=== PATIENT | female | born 1990 | race American Indian/Alaskan Native ===

== ENCOUNTER 2016-08-24 01:25 | Emergency (ER) | payer MEDICAID ==
--- NOTE | 2016-08-24 01:49 | Emergency Department Report ---
ED Abdominal Pain HPI - General Stated Complaint: ABDOMINAL PAIN Time Seen by Provider: 08/24/16 01:41 - History of Present Illness Initial Comments: This is a 26-year-old female with prior history of as abdominal surgeries. She complains of 4 hour history of right lower quadrant abdominal pain. States the pain is worse with movement. She is somewhat nauseated with this. She has had emesis 2. She denies any diarrhea she denies any trauma. She denies any recent travel. She denies dysuria. MD Complaint: abdominal pain Onset/Timin -: hour(s) Location: RLQ Radiation: none Migration to: no migration Severity scale (0 -10): 10 Quality: sharp Consistency: constant Improves With: nothing Worsens With: movement Associated Symptoms: denies other symptoms - Related Data Previous Rx's Medication Instructions Recorded Last Taken Type Ibuprofen [Motrin 800 MG tab] 800 mg PO Q8HR PRN #20 tablet 08/24/16 Unknown Rx Ondansetron [Zofran TAB] 4 mg PO Q8HR PRN #10 tablet 08/24/16 Unknown Rx oxyCODONE /ACETAMINOPHEN [Percocet 1 tab PO Q4HR PRN #20 tab 08/24/16 Unknown Rx 5/325] Allergies Allergy/AdvReac Type Severity Reaction Status Date / Time No Known Allergies Allergy Verified 08/24/16 01:51 ED Review of Systems ROS: Stated complaint: ABDOMINAL PAIN Other details as noted in HPI Comment: All other systems reviewed and negative Constitutional: denies: chills, fever Eyes: denies: eye pain, eye discharge, vision change ENT: denies: ear pain, throat pain Respiratory: denies: cough, shortness of breath, wheezing Cardiovascular: denies: chest pain, palpitations Endocrine: no symptoms reported Gastrointestinal: abdominal pain, nausea, vomiting. denies: diarrhea Genitourinary: denies: urgency, dysuria, discharge Musculoskeletal: denies: back pain, joint swelling, arthralgia Skin: denies: rash, lesions Neurological: denies: headache, weakness, paresthesias Psychiatric: denies: anxiety, depression Hematological/Lymphatic: denies: easy bleeding, easy bruising ED Past Medical Hx - Past Medical History Previous Medical History?: No - Medications Home Medications: Home Medications Medication Instructions Recorded Confirmed Last Taken Type Ibuprofen [Motrin 800 MG tab] 800 mg PO Q8HR PRN #20 tablet 08/24/16 Unknown Rx Ondansetron [Zofran TAB] 4 mg PO Q8HR PRN #10 tablet 08/24/16 Unknown Rx oxyCODONE /ACETAMINOPHEN [Percocet 1 tab PO Q4HR PRN #20 tab 08/24/16 Unknown Rx 5/325] ED Physical Exam - General General appearance: alert, in distress (moderate), obese - Head Head exam: Present: atraumatic, normocephalic - Eye Eye exam: Present: normal appearance - ENT ENT exam: Present: mucous membranes moist - Neck Neck exam: Present: normal inspection - Respiratory Respiratory exam: Present: normal lung sounds bilaterally. Absent: respiratory distress - Cardiovascular Cardiovascular Exam: Present: regular rate, normal rhythm. Absent: systolic murmur, diastolic murmur, rubs, gallop - GI/Abdominal GI/Abdominal exam: Present: soft, tenderness (moderate right lower quadrant. No guarding no rebound.), normal bowel sounds. Absent: guarding, rebound, organomegaly - Extremities Exam Extremities exam: Present: normal inspection - Back Exam Back exam: Present: normal inspection. Absent: CVA tenderness (R), CVA tenderness (L) - Neurological Exam Neurological exam: Present: alert, oriented X3 - Psychiatric Psychiatric exam: Present: normal affect, normal mood - Skin Skin exam: Present: warm, dry, intact, normal color. Absent: rash ED Course Vital Signs 08/24/16 08/24/16 08/24/16 01:47 01:48 02:00 Temperature 98.5 F 98.5 F Pulse Rate 111 H 111 H Respiratory 20 20 20 Rate Blood Pressure 131/73 Blood Pressure 131/73 [Left] O2 Sat by Pulse 100 100 Oximetry 08/24/16 08/24/16 08/24/16 02:08 02:30 04:49 Temperature Pulse Rate Respiratory 20 20 20 Rate Blood Pressure Blood Pressure [Left] O2 Sat by Pulse 100 Oximetry 08/24/16 08/24/16 05:19 05:46 Temperature Pulse Rate Respiratory 20 20 Rate Blood Pressure Blood Pressure [Left] O2 Sat by Pulse Oximetry - Reevaluation(s) Reevaluation #1: 08/24/16 05:52 Patient's initial presentation seemed consistent with possibility of appendicitis. After obtaining test, CT abdomen and pelvis was ordered. Patient was given IV pain medications with fairly good result. Ultimately CT scan did demonstrate kidney stone. Was somewhat surprising to me but is correlated with hematuria which is noted in her sample as well. Rest of her labs are unremarkable. I did have a long conversation with the patient regarding her diagnoses. She is noted to have several intrarenal stones as well and indicated she will likely have other pains like this in the future. In general she is not very good at handling pain and I suspect we will see more of her in the ED. I did give her referral to urology as well. There are no concerning features noted on her examination labs or CT for the hydroureter. I feel She will be successful in passing the stone home on her own. ED Medical Decision Making - Lab Data Result diagrams: 08/24/16 01:58 08/24/16 01:58 - Radiology Data Radiology results: report reviewed, image reviewed 3 mm meter calculus in the right ureter at the level of the UVJ. Moderate hydroureter and hydronephrosis appreciated. Normal appendix. Normal ovaries. Critical care attestation.: If time is entered above; I have spent that time in minutes in the direct care of this critically ill patient, excluding procedure time. ED Disposition Clinical Impression: Kidney stone on right side Disposition: DISCHARGED TO HOME OR SELFCARE Is pt being admited?: No Does the pt Need Aspirin: No Condition: Stable Instructions: Kidney Stones (ED) Additional Instructions: Drink plenty of fluids. Follow up with urology if you continue to have pains for longer than 5 days. Prescriptions: Ibuprofen [Motrin 800 MG tab] 800 mg PO Q8HR PRN #20 tablet PRN Reason: Pain Ondansetron [Zofran TAB] 4 mg PO Q8HR PRN #10 tablet PRN Reason: Nausea oxyCODONE /ACETAMINOPHEN [Percocet 5/325] 1 tab PO Q4HR PRN #20 tab PRN Reason: Pain Referrals: PRIMARY CARE, [Primary Care Provider] - 3-5 Days CHACHO BAUM MD [Staff Physician] - 3-5 Days Time of Disposition: 05:00
[2016-08-24] MEDS: DILAUDID IV ONE ×2 (02:00→04:49)
[2016-08-24] MEDS: NACL 0.9% 1000 ML 1,000 ML IV ONE (02:00)
[2016-08-24] MEDS: ZOFRAN ODT PO/SL ONE (02:00)
[2016-08-24 02:09] LABS: Basophils % (Auto) 0.5 % (0.0-1.8); Eosinophils % (Auto) 0.4 % (0.0-4.3); Hematocrit 39.9 % (30.3-42.9); Hemoglobin 13.2 gm/dl (10.1-14.3); Mean Corpuscular HGB Conc 33 % (30-34); Mean Corpuscular Volume 78 fl (79-97); Platelet Count 271 K/mm3 (140-440); Red Cell Distribution Width 12.5 % (13.2-15.2); White Blood Count 7.7 K/mm3 (4.5-11.0)
[2016-08-24 02:10] LABS: Mean Corpuscular Hemoglobin 26 pg (28-32)
[2016-08-24 02:29] LABS: Alanine Aminotransferase 18 units/L (7-56); Albumin 3.8 g/dL (3.9-5); Albumin/Globulin Ratio 1.2 %; Alkaline Phosphatase 83 units/L (35-129); Anion Gap 16 mmol/L; Bilirubin,Total 0.2 mg/dL (0.1-1.2); Blood Urea Nitrogen 10 mg/dL (7-17); Calcium 9.1 mg/dL (8.4-10.2); Carbon Dioxide 20 mmol/L (22-30); Chloride 101.4 mmol/L (98-107); Glucose 131 mg/dL (65-100); Potassium 3.5 mmol/L (3.6-5.0); Sodium 134 mmol/L (137-145); Total Protein 6.9 g/dL (6.3-8.2)
[2016-08-24 03:47] LABS: Bilirubin,Urine NEG (Negative); Blood,Urine LG (Negative); Ketones,Urine NEG (Negative); Leukocyte Esterase,Urine NEG (Negative); Nitrite,Urine NEG (Negative); Protein,Urine <15 mg/dL mg/dL (Negative); Urobilinogen,Urine < 2.0 mg/dL (<2.0)
[2016-08-24 03:51] LABS: RBC,Urine > 182.0 /HPF (0.0-6.0)
[2016-08-24] MEDS ORDERED: ZOFRAN ONE (04:38)
--- NOTE | 2016-08-24 04:38 | Cat Scan Report ---
FINAL REPORT PROCEDURE: CT ABDOMEN PELVIS W CON TECHNIQUE: Computerized axial tomography of the abdomen and pelvis was performed after the IV injection of iodinated nonionic contrast. HISTORY: RLQ abd pains COMPARISON: No prior studies are available for comparison. FINDINGS: Visualized lower thorax: No significant abnormality. Liver: Normal size and attenuation. Spleen: Normal size and attenuation. Gallbladder and biliary system: Normal. Pancreas: Normal. Adrenals: Normal. Kidneys: Both kidneys have a normal size. Moderate right hydronephrosis and hydroureter down to a 3 millimeter stone at the right ureteral vesicle junction. The left collecting system is normal.. GI tract: No obstruction is seen. No ileus or enteritis. The cecum, appendix and colon are normal.. Lymph nodes and mesentery: Normal. Vasculature: Normal. Bladder: Normal. Reproductive organs: The uterus is normal. There is a moderate-sized cyst off of the left ovary, this measures 3 centimeters in diameter. Minimal fluid identified in the lower pelvis.. Peritoneum: Minimal fluid lower pelvis.. Musculoskeletal structures: No significant abnormality. Other: None. IMPRESSION: Moderate right hydronephrosis and hydroureter down to a 3 millimeter stone at the right ureteral vesicle junction. Left ovary cystic region measures 3 centimeters. Minimal fluid is identified in the cul-de-sac. Hemorrhagic cyst is possible.
[2016-08-24] MEDS: ZOFRAN IV ONE (04:49)
[2016-08-24] MEDS: NACL ONE (04:59)
[2016-08-24] MEDS: TORADOL IV ONE (05:46)
[2016-08-24 06:53] VITALS: BP 120/68
== END 2016-08-24 06:54 | disposition home or self-care (01) ==
LOC: ED 01:25
DX: N20.0 Calculus of kidney (principal); R11.2 Nausea with vomiting, unspecified
CPT/HCPCS: 36415; 74177; 80053; 81001; 83690; 84703; 85025; 96361; 96374; 96375; 96376; 99284; J1170; J1885; J2405; J7030; Q9967; Q0162

== ENCOUNTER 2016-09-06 10:28 | Outpatient (CLI) | payer MEDICAID ==
--- NOTE | 2016-09-06 12:18 | Ultrasound Report ---
ULTRASOUND RENAL BILATERAL HISTORY: Hydronephrosis. TECHNIQUE: Transabdominal ultrasound with color Doppler interrogation. FINDINGS: Comparison is made to the CT abdomen and pelvis dated 08/24/16. CT demonstrated mild to moderate right hydronephrosis and a mid to distal right ureteral stone. The right kidney measures 11.1 cm in length and the left kidney measures 11.0 cm in length. Right hydronephrosis has resolved or nearly resolved. The kidneys appear within normal limits. There is normal cortical echotexture. No evidence for cystic disease, mass or perinephric fluid. There is good flow to both kidneys on color Doppler. Images through the bladder are unremarkable. IMPRESSION: Right hydronephrosis has resolved or nearly resolved since the CT abdomen pelvis dated 08/24/16. No acute abnormality is appreciated.
== END 2016-09-06 10:29 | disposition home or self-care (01) ==
LOC: US 10:28
PROVIDERS: ATTEND Pediatrics
DX: N13.2 Hydronephrosis with renal and ureteral calculous obstruction (principal)
CPT/HCPCS: 76770

== ENCOUNTER 2017-01-15 03:56 | Emergency (ER) | payer MEDICAID ==
[2017-01-15 04:30] VITALS: BP 137/89
--- NOTE | 2017-01-15 05:04 | Emergency Department Report ---
HPI - General Chief Complaint: Dental/Oral Time Seen by Provider: 01/15/17 05:03 - HPI HPI: Patient here reports that she had toothache to her right lower back tooth that started at 1 AM. She says she took Excedrin and Motrin and she didn't get any relief. Patient does not have a dentist. Denies any sore throat or swelling of tongue. Denies any drooling. Denies any nasal congestion or coughing. Pain is 10 out of 10 and achy. Denies any fever or chills ED Past Medical Hx - Past Medical History Previous Medical History?: No - Surgical History Past Surgical History?: Yes Additional Surgical History: C-sections X3 - Family History Family history: no significant - Social History Smoking Status: Never Smoker Substance Use Type: None - Medications Home Medications: Home Medications Medication Instructions Recorded Confirmed Last Taken Type Ibuprofen [Motrin 800 MG tab] 800 mg PO Q8HR PRN #20 tablet 08/24/16 Unknown Rx Ondansetron [Zofran TAB] 4 mg PO Q8HR PRN #10 tablet 08/24/16 Unknown Rx oxyCODONE /ACETAMINOPHEN [Percocet 1 tab PO Q4HR PRN #20 tab 08/24/16 Unknown Rx 5/325] Acetaminophen/Codeine [Tylenol 1 tab PO Q6H PRN #12 tab 01/15/17 Unknown Rx /Codeine # 3 tab] Amoxicillin [Amoxicillin TAB] 875 mg PO BID #20 tablet 01/15/17 Unknown Rx Ibuprofen [Motrin] 600 mg PO Q8H PRN #15 tablet 01/15/17 Unknown Rx ED Review of Systems ROS: Stated complaint: TOOTHACHE Other details as noted in HPI Comment: All other systems reviewed and negative Constitutional: denies: chills, fever ENT: dental pain. denies: ear pain, throat pain, congestion Respiratory: no symptoms reported Cardiovascular: denies: chest pain, palpitations, edema, syncope Gastrointestinal: denies: abdominal pain, nausea, vomiting Musculoskeletal: denies: back pain, arthralgia Skin: denies: rash Neurological: denies: headache Physical Exam - Physical Exam Vital Signs: Vital Signs 01/15/17 04:24 Temperature 98.3 F Pulse Rate 72 Respiratory 18 Rate Blood Pressure 137/89 Blood Pressure 137/89 [Left] O2 Sat by Pulse 100 Oximetry General: This is a 26-year-old female well-nourished well-developed in no acute distress. Physical Exam: Head: Normocephalic atraumatic Mouth: Moist, no pharyngeal exudate or erythema. Uvula is midline and oral airway is patent. No gingival enlargement or dental tenderness. No facial swelling. No peritonsillar abscesses. Patient with fracture to to #32. No pulp exposure noted. No cellulitic or indurated. Noted around tooth. Facial swelling noted. Patient with dental caries. Neck: Supple, no C-spine tenderness, no tracheal deviation. Nontender to palpate. no adenopathy Ears: Bilateral pearly wilcox.bilateral EAC without any redness swelling or drainage Eyes: Bilateral pupils equal and reactive to light, bilateral EOM intact. Bilateral sclera and conjunctiva without injection. Normal accommodation Nose: Mucosa moist, normal mucosa maxillary and frontal sinus non-tender to palpate. Lungs: Clear to auscultate bilaterally no rhonchi wheezes or rales. Normal work of breathing extremity; No CCE. +2 pulses. No neurovascular compromise Cardiovascular: S1-S2, regular rate rhythm. No murmurs. Skin: clean Dry and intact no rash no lesions Psych: Normal mood and behavior ED Course Vital Signs 01/15/17 04:24 Temperature 98.3 F Pulse Rate 72 Respiratory 18 Rate Blood Pressure 137/89 Blood Pressure 137/89 [Left] O2 Sat by Pulse 100 Oximetry - Reevaluation(s) Reevaluation #1: 01/15/17 06:08 Patient given Motrin 800 mg in emergency room for pain. ED Medical Decision Making - Medical Decision Making ED course: Patient with toothache to right lower back tooth with poor oral care and no dental follow-up. She was given Motrin 800 mg in emergency room for pain and I discussed the patient that she will need to follow-up with dental clinic for further evaluation and treatment of fractured tooth, dental caries. She voiced understanding and and was given prescription for amoxicillin , Motrin and Tylenol 3. Critical care attestation.: If time is entered above; I have spent that time in minutes in the direct care of this critically ill patient, excluding procedure time. ED Disposition Clinical Impression: Tooth ache, Dental caries Fracture, tooth Qualifiers: Encounter type: initial encounter Fracture type: closed Qualified Code(s): S02.5XXA - Fracture of tooth (traumatic), initial encounter for closed fracture Disposition: DC-01 TO HOME OR SELFCARE Is pt being admited?: No Does the pt Need Aspirin: No Condition: Stable Instructions: Dental Caries (ED), Toothache (ED) Additional Instructions: Please follow-up with dentist a year refer to any or discharge instructions. Please do not drive or operate heavy machinery while taking Tylenol 3 of this medication can cause drowsiness Take antibiotic as prescribed Prescriptions: Acetaminophen/Codeine [Tylenol /Codeine # 3 tab] 1 tab PO Q6H PRN #12 tab PRN Reason: Toothache Amoxicillin [Amoxicillin TAB] 875 mg PO BID #20 tablet Ibuprofen [Motrin] 600 mg PO Q8H PRN #15 tablet PRN Reason: Pain Referrals: [facility] [Outside] - 01/19/17 Forms: Work/School Release Form(ED)
== END 2017-01-15 06:20 | disposition home or self-care (01) ==
LOC: ED 03:56
DX: S02.5XXA Fracture of tooth (traumatic), initial encounter for closed fracture (principal); K02.9 Dental caries, unspecified; X58.XXXA Exposure to other specified factors, initial encounter; Y93.9 Activity, unspecified; Y92.9 Unspecified place or not applicable; Y99.9 Unspecified external cause status
CPT/HCPCS: 99282

== ENCOUNTER 2020-05-07 22:04 | Emergency (ER) | payer OTHER ==
[2020-05-07 22:48] VITALS: BP 115/65
[2020-05-08] MEDS ORDERED: ONDANSETRON 4 MG ODT TAB ONE (01:47)
[2020-05-08] MEDS ORDERED: ONDANSETRON 4 MG ODT TAB PO ONE (01:51)
[2020-05-08] MEDS ORDERED: KETOROLAC 60 MG/2 ML INJ IM STA (02:46)
[2020-05-08] MEDS ORDERED: CLINDAMYCIN 150 MG/ML VIAL 6 ML IM STA (02:46)
[2020-05-08] MEDS ORDERED: HYDROcodone/ACETAMINOPHEN 5-325 MG TAB PO STA (02:47)
--- NOTE | 2020-05-08 02:56 | Emergency Department Report ---
ED ENT HPI - General Chief complaint: Dental/Oral Stated complaint: TOOTH PAIN Time Seen by Provider: 05/08/20 02:04 Source: patient Mode of arrival: Ambulatory Limitations: No Limitations - History of Present Illness Initial comments: 30-year-old -[place] female that emerge department complaining of a 1 month history of waxing waning dental pain which is progressively worsening to swelling to the right lower molar region tenderness upon palpation and with eating. States that she saw her dentist about 2 weeks ago which was prescribed some amoxicillin but symptoms have not yet improved. She reports no odynophagia or dysphagia. No chest pain palpitation no nausea vomiting Severity: mild Consistency: constant Improves with: none Worsens with: none Context- Dental: poor dental care Associated Symptoms: toothache. denies: sore throat, hearing loss, discharge from ear, rhinorrhea - Related Data Previous Rx's Medication Instructions Recorded Last Taken Type Ibuprofen [Motrin 800 MG tab] 800 mg PO Q8HR PRN #20 tablet 08/24/16 Unknown Rx Ondansetron [Zofran TAB] 4 mg PO Q8HR PRN #10 tablet 08/24/16 Unknown Rx oxyCODONE /ACETAMINOPHEN [Percocet 1 tab PO Q4HR PRN #20 tab 08/24/16 Unknown Rx 5/325] Acetaminophen/Codeine [Tylenol 1 tab PO Q6H PRN #12 tab 01/15/17 Unknown Rx /Codeine # 3 tab] Amoxicillin [Amoxicillin TAB] 875 mg PO BID #20 tablet 01/15/17 Unknown Rx Ibuprofen [Motrin] 600 mg PO Q8H PRN #15 tablet 01/15/17 Unknown Rx Chlorhexidine Mouthwash [Peridex] 15 ml MM BID #1 bottle 05/08/20 Unknown Rx Clindamycin [Clindamycin CAP] 150 mg PO Q6HR #40 capsule 05/08/20 Unknown Rx Ketorolac [Toradol] 10 mg PO Q6H PRN #14 tablet 05/08/20 Unknown Rx Lidocaine Viscous 2% 5 ml MM Q3H PRN #120 udc 05/08/20 Unknown Rx Allergies Allergy/AdvReac Type Severity Reaction Status Date / Time No Known Allergies Allergy Verified 08/24/16 01:51 ED Dental HPI - General Chief complaint: Dental/Oral Stated complaint: TOOTH PAIN Time Seen by Provider: 10/22/20 02:04 Source: patient Mode of arrival: Ambulatory Limitations: No Limitations - Related Data Previous Rx's Medication Instructions Recorded Last Taken Type Ibuprofen [Motrin 800 MG tab] 800 mg PO Q8HR PRN #20 tablet 08/24/16 Unknown Rx Ondansetron [Zofran TAB] 4 mg PO Q8HR PRN #10 tablet 08/24/16 Unknown Rx oxyCODONE /ACETAMINOPHEN [Percocet 1 tab PO Q4HR PRN #20 tab 08/24/16 Unknown Rx 5/325] Acetaminophen/Codeine [Tylenol 1 tab PO Q6H PRN #12 tab 01/15/17 Unknown Rx /Codeine # 3 tab] Amoxicillin [Amoxicillin TAB] 875 mg PO BID #20 tablet 01/15/17 Unknown Rx Ibuprofen [Motrin] 600 mg PO Q8H PRN #15 tablet 01/15/17 Unknown Rx Chlorhexidine Mouthwash [Peridex] 15 ml MM BID #1 bottle 05/08/20 Unknown Rx Clindamycin [Clindamycin CAP] 150 mg PO Q6HR #40 capsule 05/08/20 Unknown Rx Ketorolac [Toradol] 10 mg PO Q6H PRN #14 tablet 05/08/20 Unknown Rx Lidocaine Viscous 2% 5 ml MM Q3H PRN #120 udc 05/08/20 Unknown Rx Allergies Allergy/AdvReac Type Severity Reaction Status Date / Time No Known Allergies Allergy Verified 08/24/16 01:51 ED Review of Systems ROS: Stated complaint: TOOTH PAIN Other details as noted in HPI Comment: All other systems reviewed and negative ED Past Medical Hx - Past Medical History Previous Medical History?: No - Surgical History Past Surgical History?: Yes Additional Surgical History: C-sections X3 - Social History Smoking Status: Never Smoker Substance Use Type: None - Medications Home Medications: Home Medications Medication Instructions Recorded Confirmed Last Taken Type Ibuprofen [Motrin 800 MG tab] 800 mg PO Q8HR PRN #20 tablet 08/24/16 Unknown Rx Ondansetron [Zofran TAB] 4 mg PO Q8HR PRN #10 tablet 08/24/16 Unknown Rx oxyCODONE /ACETAMINOPHEN [Percocet 1 tab PO Q4HR PRN #20 tab 08/24/16 Unknown Rx 5/325] Acetaminophen/Codeine [Tylenol 1 tab PO Q6H PRN #12 tab 01/15/17 Unknown Rx /Codeine # 3 tab] Amoxicillin [Amoxicillin TAB] 875 mg PO BID #20 tablet 01/15/17 Unknown Rx Ibuprofen [Motrin] 600 mg PO Q8H PRN #15 tablet 01/15/17 Unknown Rx Chlorhexidine Mouthwash [Peridex] 15 ml MM BID #1 bottle 05/08/20 Unknown Rx Clindamycin [Clindamycin CAP] 150 mg PO Q6HR #40 capsule 05/08/20 Unknown Rx Ketorolac [Toradol] 10 mg PO Q6H PRN #14 tablet 05/08/20 Unknown Rx Lidocaine Viscous 2% 5 ml MM Q3H PRN #120 udc 05/08/20 Unknown Rx ED Physical Exam - General Limitations: No Limitations General appearance: alert, in no apparent distress - Head Head exam: Present: atraumatic, normocephalic - Eye Eye exam: Present: normal appearance - ENT ENT exam: Present: mucous membranes moist, other (Swelling to the right mandible region and tenderness with palpation around tooth #30 mouth adjacent gingival erythema and mild swelling. Tongue and uvula midline no exudate airways patent normal voice. Mild tonsillar lymphadenopathy to the right side) - Neck Neck exam: Present: normal inspection - Respiratory Respiratory exam: Present: normal lung sounds bilaterally. Absent: respiratory distress - Cardiovascular Cardiovascular Exam: Present: regular rate, normal rhythm. Absent: systolic murmur, diastolic murmur, rubs, gallop - GI/Abdominal GI/Abdominal exam: Present: soft, normal bowel sounds - Extremities Exam Extremities exam: Present: normal inspection - Back Exam Back exam: Present: normal inspection - Neurological Exam Neurological exam: Present: alert, oriented X3 - Psychiatric Psychiatric exam: Present: normal affect, normal mood - Skin Skin exam: Present: warm, dry, intact, normal color. Absent: rash ED Course Vital Signs 05/07/20 22:46 Temperature 98.4 F Pulse Rate 92 H Respiratory 18 Rate Blood Pressure 115/65 O2 Sat by Pulse 98 Oximetry Critical care attestation.: If time is entered above; I have spent that time in minutes in the direct care of this critically ill patient, excluding procedure time. ED Disposition Clinical Impression: Dentalgia, Dental infection Disposition: TO HOME OR SELFCARE Is pt being admited?: No Does the pt Need Aspirin: No Condition: Stable Instructions: Toothache (ED), Dental Caries (ED), Dental Abscess (ED) Prescriptions: Clindamycin [Clindamycin CAP] 150 mg PO Q6HR #40 capsule Lidocaine Viscous 2% 5 ml MM Q3H PRN #120 udc PRN Reason: Pain, Moderate (4-6) Chlorhexidine Mouthwash [Peridex] 15 ml MM BID #1 bottle Ketorolac [Toradol] 10 mg PO Q6H PRN #14 tablet PRN Reason: Pain Referrals: [facility] [Other] - 3-5 Days [facility] [Outside] - 3-5 Days
== END 2020-05-08 04:04 | disposition home or self-care (01) ==
LOC: ED 22:04
DX: K04.7 Periapical abscess without sinus (principal); K08.89 Other specified disorders of teeth and supporting structures; Z79.899 Other long term (current) drug therapy; Z98.890 Other specified postprocedural states
CPT/HCPCS: 96372; 99282; J1885; Q0162